=== PATIENT | female | born 1990 | race Caucasian/White ===

== ENCOUNTER 2017-07-01 12:54 | Outpatient (CLI) | payer SELFPAY ==
[~2017-07-01] VITALS: Ht 152.4 cm; Wt 65.9 kg
[2017-07-01] VITALS (19 sets, daily range): BP systolic 137–197; BP diastolic 87–125; PULSE 80–111; TEMP 98.3
[2017-07-01] MEDS ORDERED: PRENATAL MVI (13:21)
[2017-07-01] MEDS ORDERED: CALCIUM CARBON650 M2 (13:22)
[2017-07-01] MEDS ORDERED: FERRO-TIME325 MG PO (13:22)
[2017-07-01 13:51] LABS: BASO # 0.1 (0.0-0.2); BASO % 0.4 % (0.0-2.0); EOS # 0.1 (0.0-0.7); GRAN # 10.9 (1.4-6.5); GRAN % 77.9 % (42.2-75.2); HEMOGLOBIN 12.1 g/dl (12.5-16.0); LYMPH # 2.1 (1.2-3.4); LYMPH % 14.9 % (20.0-51.0); MEAN CELL VOLUME 96 fl (80.0-100.0); MEAN CORPUSCULAR HEMOGLOBIN 33 pg (27.0-31.0); MEAN CORPUSCULAR HGB CONC 34 g/dl (33.0-37.0); MEAN PLATELET VOLUME 9.7 fl (7.4-10.4); MONO # 0.7 (0.1-0.6); MONO % 5.3 % (1.7-9.3); PLATELET COUNT 271 K/mm3 (130-400); RED BLOOD COUNT 3.69 M/mm3 (4.10-5.30); REDCELL DISTRIBUTION WIDTH-CV 12.9 % (11.5-14.5)
[2017-07-01 13:52] LABS: HEMATOCRIT 35.3 % (37.0-47.0)
[2017-07-01 13:57] LABS: BILIRUBIN,TOTAL 0.1 mg/dL (0.0-1.0); CALCIUM 8.6 mg/dL (8.4-10.2); CREATININE, serum 0.76 mg/dL (0.52-1.25); TOTAL PROTEIN 6.2 gm/dL (6.4-8.2)
== END 2017-07-01 17:30 | disposition critical access hospital (66) ==
LOC: LDRO 12:54 → LDR 13:00 → LDRO 17:30
PROVIDERS: Obstetrics & Gynecology
DX: O99.413 Diseases of the circulatory system complicating pregnancy, third trimester (principal); R03.0 Elevated blood-pressure reading, without diagnosis of hypertension; Z3A.28 28 weeks gestation of pregnancy
CPT/HCPCS: OP; J0360; J0702